=== PATIENT | female | born 1980 | race Caucasian/White ===

== ENCOUNTER 2019-06-14 17:46 | Emergency (ER) | payer BC, OTHER ==
--- NOTE | 2019-06-14 20:20 | XR ---
EXAMINATION TYPE: XR chest 2V DATE OF EXAM: 06/14/2019 COMPARISON: 03/02/2015 HISTORY: Cough TECHNIQUE: FINDINGS: Heart and mediastinum are normal. Lungs are clear. Diaphragm is normal. Bony thorax appears normal. IMPRESSION: Normal chest. Normal heart. No change.
--- NOTE | 2019-06-14 21:03 | ED ---
URI HPI - General Chief Complaint: Upper Respiratory Infection Stated Complaint: cough/congestion Time Seen by Provider: 06/14/19 19:04 Source: patient Mode of arrival: ambulatory - History of Present Illness Initial Comments: Patient is a 38-year-old female presenting to emergency Department with complaints of an ongoing cough for the past 2 months. Patient states she was treated previously with amoxicillin and steroids about a month ago for same complaint. Patient denies any fever, chills. She denies nausea, vomiting, diarrhea. Her only complaint is his ongoing cough that is significant. Akzb-lji-[id number] medications are not helping. She has no other complaints at this time. Arrival to ER, vital signs are stable. - Related Data Home Medications Medication Instructions Recorded Confirmed Wsq-[id number] Acid 1 tab PO DAILY 10/08/13 10/08/13 [-U Capsule] Previous Rx's Medication Instructions Recorded Azithromycin [Zithromax Z-pack] 0 mg PO DIRECTED #1 pack 06/14/19 predniSONE 10 mg PO DIRECTED #20 tab 06/14/19 Allergies Allergy/AdvReac Type Severity Reaction Status Date / Time red dye Allergy Cough Verified 06/14/19 19:01 Review of Systems ROS Statement: Those systems with pertinent positive or pertinent negative responses have been documented in the HPI. ROS Other: All systems not noted in ROS Statement are negative. Past Medical History Past Medical History: No Reported History History of Any Multi-Drug Resistant Organisms: None Reported Additional Past Surgical History / Comment(s): eye surgery-childhood Past Anesthesia/Blood Transfusion Reactions: No Reported Reaction Past Psychological History: No Psychological Hx Reported Smoking Status: Never smoker Past Alcohol Use History: None Reported Past Drug Use History: None Reported - Past Family History Father Family Medical History: Hypertension General Exam - General Exam Comments Initial Comments: GENERAL: Well-appearing, well-nourished and in no acute distress. HEAD: Atraumatic, normocephalic. EYES: Pupils equal round and reactive to light, extraocular movements intact, sclera anicteric, conjunctiva are normal. ENT: TMs normal, nares patent, oropharynx clear without exudates. Moist mucous membranes. NECK: Normal range of motion, supple without lymphadenopathy or JVD. LUNGS: Breath sounds clear to auscultation bilaterally and equal. No wheezes rales or rhonchi. HEART: Regular rate and rhythm without murmurs, rubs or gallops. ABDOMEN: Soft, nontender, normoactive bowel sounds. No guarding, no rebound. No masses appreciated. : Deferred EXTREMITIES: Normal range of motion, no pitting or edema. No clubbing or cyanosis. NEUROLOGICAL: Normal speech, normal gait. PSYCH: Normal mood, normal affect. SKIN: Warm, Dry, normal turgor, no rashes or lesions noted. Course Vital Signs 06/14/19 06/14/19 06/14/19 18:56 20:42 21:29 Temperature 98.2 F 98.5 F Pulse Rate 97 70 Respiratory 19 18 19 Rate Blood Pressure 125/80 117/78 O2 Sat by Pulse 98 98 Oximetry Medical Decision Making - Medical Decision Making Patient is a 38-year-old female presenting with a cough for 2 months. Patient's vital signs are stable. Her exam is unremarkable. X-ray shows no acute abnormalities. I discussed these findings with the patient. Patient will be placed on azithromycin and steroids. She is in agreement with this plan of care. She'll follow-up with PCP if symptoms persist. Disposition Clinical Impression: Upper respiratory tract infection Disposition: HOME SELF-CARE Condition: Stable Instructions (If sedation given, give patient instructions): Upper Respiratory Infection (ED) Additional Instructions: Please return to the Emergency Department if symptoms worsen or any other concerns. Take medications as prescribed. Follow-up with PCP if symptoms persist. Prescriptions: predniSONE 10 mg PO DIRECTED #20 tab Azithromycin [Zithromax Z-pack] 0 mg PO DIRECTED #1 pack Is patient prescribed a controlled substance at d/c from ED?: No Referrals: None,Stated [Primary Care Provider] - 1-2 days
[2019-06-14 21:30] VITALS: BP 117/78; PULSE 70; RESP 19; TEMP 98.5
== END 2019-06-14 21:30 | disposition home or self-care (01) ==
LOC: EC 17:46
DX: J06.9 Acute upper respiratory infection, unspecified (principal); Z91.048 Other nonmedicinal substance allergy status
CPT/HCPCS: 71046; 99283